=== PATIENT | male | born 1990 | race African-American/Black ===

== ENCOUNTER 2022-05-18 09:28 | Emergency (ER) | payer OTHER ==
[~2022-05-18] VITALS: Ht 177.8 cm; Wt 66.7 kg
[2022-05-18 10:07] LABS: *BILIRUBIN,URIN NEGATIVE (NEGATIVE); *BLOOD, URINE NEGATIVE (NEGATIVE); *CLARITY,URINE CLEAR (CLEAR); *COLOR,URINE YELLOW (YELLOW); *KETONES,URINE NEGATIVE (NEGATIVE); *UROBILINOGEN,URINE 0.2 E.U./dl (NORMAL); LEUKOCYTE ESTERASE ,URINE TRACE (NEGATIVE); NITRITE, URINE NEGATIVE (NEGATIVE); PH,URINE 5.5 (5.0-8.0); UGLUCOSE NEGATIVE (NEGATIVE)
[2022-05-18 10:33] LABS: MUCUS,URINE FEW /LPF (0-FEW)
[2022-05-18 10:35] LABS: BACTERIA,URINE NONE SEEN /HPF (NONE SEEN); SQUAMOUS EPITHELIAL CELL,UR NONE SEEN /HPF (NONE SEEN)
[2022-05-18 10:44] LABS: WBC,URINE 0-3 /HPF (0-3)
[2022-05-18] MEDS ORDERED: CEFTRIAXONE 500 MG VIAL IM ONE (11:15)
[2022-05-18] MEDS ORDERED: LIDOCAINE 1%-EPI 1:100,000 20 ML VIAL IJ ONE (11:15)
[2022-05-18] MEDS ORDERED: DOXY100C5 PO (11:28)
[2022-05-18] MEDS ORDERED: LIDOCAINE 1%-EPI 1:100,000 20 ML VIAL ONE (11:29)
[2022-05-18] MEDS ORDERED: CEFTRIAXONE 500 MG VIAL ONE (11:29)
--- NOTE | 2022-05-18 12:08 | NUR ---
Gave pt RX and d/c instructions, pt verbalized understanding.
[2022-05-21 06:06] LABS: *TRIC.VAG. NAA Negative (Negative)
[2022-05-21 07:06] LABS: *GC NAA Negative (Negative)
== END 2022-05-18 12:11 | disposition home or self-care (01) ==
LOC: ER 09:31
DX: N50.811 Right testicular pain (principal); N50.82 Scrotal pain; N20.0 Calculus of kidney; R31.9 Hematuria, unspecified; Z11.3 Encounter for screening for infections with a predominantly sexual mode of transmission
CPT/HCPCS: 99285; 74176; 86592; 81001; 87806; 76870; 96372; 87491; J0696; J3490; A4663

== ENCOUNTER 2023-10-15 01:13 | Emergency (ER) | payer OTHER ==
[~2023-10-15] VITALS: Ht 177.8 cm; Wt 65.8 kg
[~2023-10-15 01:13] MED LIST: DOXY100C5 PO
[2023-10-15] MEDS ORDERED: KETOROLAC TROMETHAMINE 30 MG INJ ONE ×2 (01:33→01:36)
[2023-10-15] MEDS ORDERED: ONDANSETRON 4 MG/2 ML VIAL ONE (01:33)
[2023-10-15] MEDS ORDERED: HYDROMORPHONE 1 MG/1 ML DISP.SYRIN ONE ×3 (01:33→05:14)
[2023-10-15 01:36] LABS: *BILIRUBIN,URIN NEGATIVE (NEGATIVE); *BLOOD, URINE NEGATIVE (NEGATIVE); *CLARITY,URINE CLEAR (CLEAR); *COLOR,URINE YELLOW (YELLOW); *KETONES,URINE NEGATIVE (NEGATIVE); *PROTEIN,URINE NEGATIVE (NEGATIVE); *UROBILINOGEN,URINE 0.2 E.U./dl (NORMAL); LEUKOCYTE ESTERASE ,URINE NEGATIVE (NEGATIVE); NITRITE, URINE NEGATIVE (NEGATIVE); UGLUCOSE NEGATIVE (NEGATIVE)
[2023-10-15] MEDS: HYDROMORPHONE 1 MG/1 ML DISP.SYRIN IV ONE ×3 (01:46→05:23)
[2023-10-15] MEDS: KETOROLAC TROMETHAMINE 30 MG INJ IVP ONE (01:47)
[2023-10-15] MEDS: ONDANSETRON 4 MG/2 ML VIAL IV ONE (01:47)
[2023-10-15] MEDS ORDERED: HYDR-3980 PO (03:33)
[2023-10-15] MEDS ORDERED: ONDA4TAB11 PO (03:33)
[2023-10-15] MEDS ORDERED: ONDANSETRON ODT 4 MG TAB.RAPDIS ONE (04:27)
[2023-10-15] MEDS: ONDANSETRON ODT 4 MG TAB.RAPDIS SL ONE (04:29)
[2023-10-15] MEDS ORDERED: OXYCODONE/APAP 5-325 MG TABLET ONE (04:33)
[2023-10-15] MEDS: OXYCODONE/APAP 5-325 MG TABLET PO ONE (04:36)
[2023-10-15] MEDS ORDERED: diphenhydrAMINE 50 MG/1 ML VIAL ONE (05:14)
[2023-10-15] MEDS ORDERED: METOCLOPRAMIDE HCL 10 MG/2 ML VIAL ONE (05:14)
[2023-10-15] MEDS: diphenhydrAMINE 50 MG/1 ML VIAL IV ONE (05:23)
[2023-10-15] MEDS: METOCLOPRAMIDE HCL 10 MG/2 ML VIAL IV ONE (05:23)
[2023-10-15 08:10] VITALS: O2SAT 100
== END 2023-10-15 08:12 | disposition home or self-care (01) ==
LOC: ER 01:18
DX: N23 Unspecified renal colic (principal); Z79.899 Other long term (current) drug therapy; Z87.442 Personal history of urinary calculi; Z60.2 Problems related to living alone
CPT/HCPCS: 99285; 96374; 96375; 81003; 76775; 76870; 96376; J1200; J1885; J2765; J2405; J1170 ×3; A4606; A4663; Q0162

== ENCOUNTER 2024-12-18 16:15 | Emergency (ER) | payer OTHER ==
[~2024-12-18] VITALS: Ht 167.6 cm; Wt 64.9 kg
[~2024-12-18 16:15] MED LIST changes: +HYDR-3980 PO; +ONDA4TAB11 PO
[2024-12-18 16:23] VITALS: O2SAT 99
[2024-12-18] MEDS ORDERED: DEXAMETHASONE SOD PHOSPHATE 4 MG INJ ONE (16:58)
[2024-12-18] MEDS ORDERED: diphenhydrAMINE 50 MG/1 ML VIAL ONE (16:58)
[2024-12-18] MEDS: DEXAMETHASONE SOD PHOSPHATE 4 MG INJ IM ONE (17:04)
[2024-12-18] MEDS: diphenhydrAMINE 50 MG/1 ML VIAL IM ONE (17:04)
== END 2024-12-18 17:30 | disposition home or self-care (01) ==
LOC: ER 16:15
DX: T78.2XXA Anaphylactic shock, unspecified, initial encounter (principal); Z79.899 Other long term (current) drug therapy; Z60.2 Problems related to living alone; Y92.89 Other specified places as the place of occurrence of the external cause
CPT/HCPCS: 99284; 96372 ×2; J1100; J1200; A4606; A4663